=== PATIENT | male | born 2000 | race African-American/Black ===

== ENCOUNTER → 2020-09-07 | Outpatient (CLI) | payer SELFPAY | LOC: M LABSMTC 10:11 | PROVIDERS: ATTEND Pediatrics | DX: Z20.822 Contact with and (suspected) exposure to COVID-19 (principal) ==

== ENCOUNTER 2021-03-03 06:25 | Emergency (ER) | payer OTHER, SELFPAY ==
[~2021-03-03] VITALS: Ht 180.3 cm; Wt 122.7 kg
[2021-03-03] MEDS ORDERED: ERYTOIN8 OD (08:18)
[2021-03-03 08:32] VITALS: BP 132/78
== END 2021-03-03 08:33 | disposition home or self-care (01) ==
LOC: M ED 06:25
DX: H10.31 Unspecified acute conjunctivitis, right eye (principal); H00.021 Hordeolum internum right upper eyelid; Z91.018 Allergy to other foods; Z97.3 Presence of spectacles and contact lenses

== ENCOUNTER 2023-02-22 11:16 | Emergency (ER) | payer OTHER ==
[~2023-02-22] VITALS: Ht 182.9 cm; Wt 119.4 kg
[~2023-02-22 11:16] MED LIST: ERYTOIN8 OD
[2023-02-22 14:34] VITALS: BP 145/86; TEMP 97.4; O2SAT 99
== END 2023-02-22 14:36 | disposition home or self-care (01) ==
LOC: M ED 11:16
DX: L25.9 Unspecified contact dermatitis, unspecified cause (principal); Z91.010 Allergy to peanuts

== ENCOUNTER 2023-09-11 09:46 | Emergency (ER) | payer OTHER ==
[~2023-09-11] VITALS: Ht 182.9 cm; Wt 120.3 kg
[2023-09-11 13:04] LABS: HEMATOCRIT 43.5 % (42.0-52.0); MEAN CORPUSCULAR HEMOGLOBIN 33.6 pg (27.0-33.0); MEAN CORPUSCULAR HGB CONC 34.5 g/dl (32.0-36.5); MEAN CORPUSCULAR VOLUME 97.3 fl (80.0-96.0); PLATELET COUNT, AUTOMATED 193 10^3/uL (150-450); RED BLOOD COUNT 4.47 10^6/uL (4.30-6.10); WHITE BLOOD COUNT 7.6 10^3/uL (4.0-10.0)
[2023-09-11 13:30] LABS: LIPASE 33 U/L (12-53)
[2023-09-11 13:32] LABS: ALBUMIN 3.9 G/DL (3.2-5.2); ALKALINE PHOSPHATASE 40 U/L (46-116); ALT/SGPT 84 U/L (7.0-40); AST/SGOT 202 U/L (<34); BILIRUBIN,DIRECT 0.3 MG/DL (<0.4); BILIRUBIN,TOTAL 0.7 MG/DL (0.3-1.2); BLOOD UREA NITROGEN 15 MG/DL (9-23); CALCIUM LEVEL 9.1 MG/DL (8.5-10.1); CARBON DIOXIDE LEVEL 31 MMOL/L (20-31); CHLORIDE LEVEL 105 MMOL/L (98-107); CREATININE FOR GFR 0.95 MG/DL (0.70-1.30); GLOMERULAR FILTRATION RATE > 60.0 (>60); GLUCOSE, FASTING 92 MG/DL (60-100); SODIUM LEVEL 139 MMOL/L (136-145); TOTAL PROTEIN 7.2 G/DL (5.7-8.2)
[2023-09-11 15:47] VITALS: BP 160/94; TEMP 97; O2SAT 100
== END 2023-09-11 15:49 | disposition home or self-care (01) ==
LOC: M ED 09:46
DX: R07.9 Chest pain, unspecified (principal); F17.290 Nicotine dependence, other tobacco product, uncomplicated; F10.10 Alcohol abuse, uncomplicated; Z91.010 Allergy to peanuts

== ENCOUNTER 2023-10-26 17:49 | Emergency (ER) | payer OTHER ==
[~2023-10-26] VITALS: Ht 180.3 cm; Wt 124.5 kg
[2023-10-26 18:40] LABS: BASO % 0.4 % (0.0-1.0); EOS # 0.1 10^3/uL (0.0-0.5); EOS % 1.8 % (0.0-3.0); HEMATOCRIT 43.2 % (42.0-52.0); HEMOGLOBIN 15.4 g/dl (13.5-17.5); LYMPH % 30.1 % (24.0-44.0); MEAN CORPUSCULAR HEMOGLOBIN 34.3 pg (27.0-33.0); MEAN CORPUSCULAR HGB CONC 35.6 g/dl (32.0-36.5); MEAN CORPUSCULAR VOLUME 96.2 fl (80.0-96.0); MONO # 0.6 10^3/uL (0.0-0.8); MONO % 8.3 % (2.0-8.0); NEUTROPHILS % 59.3 % (36.0-66.0); PLATELET COUNT, AUTOMATED 172 10^3/uL (150-450); RED BLOOD COUNT 4.49 10^6/uL (4.30-6.10); WHITE BLOOD COUNT 6.7 10^3/uL (4.0-10.0)
[2023-10-26 19:05] LABS: CK-MB VALUE MASS 1.4 NG/ML (<3.6)
[2023-10-26 19:09] LABS: ALBUMIN 3.8 G/DL (3.2-5.2); ALKALINE PHOSPHATASE 42 U/L (46-116); ALT/SGPT 35 U/L (7.0-40); AST/SGOT 26 U/L (<34); BILIRUBIN,DIRECT 0.1 MG/DL (<0.4); BILIRUBIN,TOTAL 0.4 MG/DL (0.3-1.2); BLOOD UREA NITROGEN 17 MG/DL (9-23); CALCIUM LEVEL 9.2 MG/DL (8.5-10.1); CARBON DIOXIDE LEVEL 24 MMOL/L (20-31); CHLORIDE LEVEL 106 MMOL/L (98-107); CREATININE FOR GFR 0.86 MG/DL (0.70-1.30); GLOMERULAR FILTRATION RATE > 60.0 (>60); GLUCOSE, FASTING 123 MG/DL (60-100); POTASSIUM SERUM 3.9 MMOL/L (3.5-5.1); SODIUM LEVEL 139 MMOL/L (136-145)
[2023-10-26 19:13] LABS: CPK CREATINE PHOSPHOKINASE 573 U/L (46-171); MB/CK RELATIVE INDEX 0.24 (< OR =4)
[2023-10-26 22:28] VITALS: TEMP 97.6
[2023-10-27 00:15] VITALS: BP 137/85; O2SAT 99
== END 2023-10-27 00:31 | disposition home or self-care (01) ==
LOC: M ED 17:49
DX: R07.9 Chest pain, unspecified (principal); F10.10 Alcohol abuse, uncomplicated; Z91.018 Allergy to other foods